=== PATIENT | male | born 1990 | race Caucasian/White ===

== ENCOUNTER 2017-04-12 13:10 | Emergency (ER) | payer OTHER ==
[~2017-04-12] VITALS: Ht 188 cm; Wt 80.0 kg
[~2017-04-12 13:10] MED LIST: CEPH500 PO
[2017-04-12 13:14] VITALS: BP 144/79; PULSE 52; RESP 18; TEMP 98.6; O2SAT 97
--- NOTE | 2017-04-12 13:27 | PD ---
Physical Exam Date Seen by Provider: Apr 12, 2017 Time Seen by Provider: 13:26 Narrative 27 yo male here for crush injury to distal 3rd and 4th digits. Painful 01/10. Only to the tips. Wrapped in triage. Able to move them. No numbness, tingling, weakness. No other injuries reported. Vitals are stable in triage. Awaiting bed placement. Data Data Last Documented VS Vital Signs Date Time Temp Pulse Resp B/P (MAP) Pulse Ox O2 Delivery O2 Flow Rate FiO2 04/12/17 13:14 98.6 52 18 144/79 (100) 97 Room Air Orders Orders Finger ([id number]) (04/12/17 ) Finger ([id number]) (04/12/17 ) MDM Medical Record Reviewed: Yes Supervised Visit with BLANCA: Elton Cullen Apr 12, 2017 13:27
--- NOTE | 2017-04-12 13:54 | PD ---
HPI Chief Complaint: Injury Time Seen by Provider: 13:54 Travel History International Travel<30 days: No Contact w/Intl Traveler<30days: No Traveled to known affect area: No PFSH Past Medical History Asthma: Yes Social History Alcohol Use: No (OCCASIONAL) Tobacco Use: Yes (QUIT 2 MONTHS AGO) Substance Use: No Allergies-Medications (Allergen,Severity, Reaction): Coded Allergies: *MDRO Multi-Drug Resistant Organism (Verified Allergy, Unknown, 04/12/17) MRSA Reported Meds & Prescriptions Reported Meds & Active Scripts Active Keflex (Cephalexin) 500 Mg Cap 500 Mg PO Q6H 7 Days Keflex 500 mg Cap (Cephalexin Monohydrate) 500 Mg Cap 500 Mg PO BID 14 Days Data Data Last Documented VS Vital Signs Date Time Temp Pulse Resp B/P (MAP) Pulse Ox O2 Delivery O2 Flow Rate FiO2 04/12/17 17:18 04/12/17 16:56 61 17 99 Room Air 04/12/17 13:14 98.6 Orders Orders Hand, Complete ([id number]) (04/12/17 ) Cefazolin 2 Gm Premix (Ancef 2 Gm Premix (04/12/17 16:15) Splint Or Brace Apply/Monitor (04/12/17 16:27) Ed Discharge Order (04/12/17 16:30) Ibuprofen (Motrin) (04/12/17 16:45) Finger Splint (04/12/17 ) Finger Splint (04/12/17 ) MDM Medical Decision Making Medical Screen Exam Complete: Yes Emergency Medical Condition: Yes Medical Record Reviewed: Yes Scripts Cephalexin (Keflex) 500 Mg Cap 500 MG PO Q6H for Infection for 7 Days, #28 CAP 0 Refills Prov: Jackie FriedmanP 04/12/17 Kia Greenfield Apr 12, 2017 13:54
--- NOTE | 2017-04-12 14:27 | RADRPT ---
EXAM DATE/TIME: 04/12/2017 14:06 [facility] COMPARISON: No previous studies available for comparison. INDICATIONS : Right hand pain, crushed 3rd and 4th digits between a truck and a zeus MEDICAL HISTORY : None. SURGICAL HISTORY : None. ENCOUNTER: Initial ACUITY: 1 day PAIN SCORE: 8/10 LOCATION: Right hand FINDINGS: There are tuft fractures of the third and fourth digits with associative soft tissue swelling and min imal radiopaque densities projecting at the fingertips. Remaining structures are intact. Joint spaces are maintained. CONCLUSION: 1. Distal third and fourth tuft fractures with small radiopaque densities projecting at the fingertip nae Harris MD on April 12, 2017 at 14:24 Board Certified Radiologist. This report was verified electronically.
--- NOTE | 2017-04-12 14:42 | PD ---
HPI Chief Complaint: Injury Time Seen by Provider: 14:33 Travel History International Travel<30 days: No Contact w/Intl Traveler<30days: No Traveled to known affect area: No History of Present Illness HPI 27 yo male here for crush injury to distal 3rd and 4th digits. Painful 01/10. Only to the tips. 2 lacerations to the third and fourth digit. Full range of motion. No numbness, tingling, weakness. No other injuries reported. Tetanus status up-to-date. PFSH Past Medical History Asthma: Yes Social History Alcohol Use: No (OCCASIONAL) Tobacco Use: Yes (QUIT 2 MONTHS AGO) Substance Use: No Allergies-Medications (Allergen,Severity, Reaction): Coded Allergies: *MDRO Multi-Drug Resistant Organism (Verified Allergy, Unknown, 04/12/17) MRSA Reported Meds & Prescriptions Reported Meds & Active Scripts Active Keflex (Cephalexin) 500 Mg Cap 500 Mg PO Q6H 7 Days Keflex 500 mg Cap (Cephalexin Monohydrate) 500 Mg Cap 500 Mg PO BID 14 Days Review of Systems Except as stated in HPI: all other systems reviewed are Neg Physical Exam Narrative GENERAL: Well-nourished, well-developed patient. SKIN: Focused skin assessment warm/dry. CARDIOVASCULAR: Regular rate and rhythm without murmurs, gallops, or rubs. RESPIRATORY: Breath sounds equal bilaterally. No accessory muscle use. GASTROINTESTINAL: Abdomen soft, non-tender, nondistended. MUSCULOSKELETAL: No cyanosis, or edema. Right hand: Third digit: 2 cm laceration to the dorsal distal aspect near the edge of the nail. Finger is mildly edematous and ecchymotic. Normal sensation. Full range of motion. Fourth digit:1.5 cm laceration to the dorsal distal aspect near the edge of the nail. Finger is mildly edematous and ecchymotic. Normal sensation. Full range of motion. Data Data Last Documented VS Vital Signs Date Time Temp Pulse Resp B/P (MAP) Pulse Ox O2 Delivery O2 Flow Rate FiO2 04/12/17 17:18 04/12/17 16:56 61 17 99 Room Air 04/12/17 13:14 98.6 Orders Orders Hand, Complete ([id number]) (04/12/17 ) Cefazolin 2 Gm Premix (Ancef 2 Gm Premix (04/12/17 16:15) Splint Or Brace Apply/Monitor (04/12/17 16:27) Ed Discharge Order (04/12/17 16:30) Ibuprofen (Motrin) (04/12/17 16:45) Finger Splint (04/12/17 ) Finger Splint (04/12/17 ) MDM Medical Decision Making Medical Screen Exam Complete: Yes Emergency Medical Condition: Yes Differential Diagnosis Finger fracture, finger laceration, contusion, crush injury Narrative Course 27-year-old male who sustained a crush injury to the right third and fourth digit while at work. Patient reports normal sensation and full range of motion. He is noted to have 2 lacerations measuring approximately 2 cm a piece. The extremity is neurovascularly intact. Call placed to hand surgeon. Spoke with Dr. Armas on-call hand surgeon regarding patient's case. He recommends extensive irrigation, primary closure, prophylactic antibiotics, finger splints and follow-up with him in office in 2-3 days. The wounds were extensively irrigated and sutured closed. Finger splints applied by nursing staff. Patient was advised to call Dr. Armas office tomorrow to schedule an appointment in 2 days. Patient was advised of this follow-up appointment with a hand surgeon was extremely important and failure to do so could result in loss of function of the hand, severe infection, and . Patient verbalizes understanding and agrees to plan Procedures Procedure Narrative LACERATION LOCATION: Third digit, fourth digit LENGTH: Third digit 2 cm, fourth digit 1.5 cm NUMBER OF STITCHES/FLAVIO: 9 total REPAIR: The area of the laceration was prepped with Betadine and sterilely draped. Digital block with 1% lidocaine. The wound was copiously irrigated and explored without evidence of foreign body, tendon injury or neurovascular injury. The wound was closed using [3-0 chromic gut]. This was a [single] layer repair. A sterile dressing was applied. The patient was advised to keep the dressing clean and dry. Patient tolerated the procedure well. Finger splint applied by nursing staff. Diagnosis Primary Impression: Finger laceration Qualified Codes: S61.319A - Laceration without foreign body of unspecified finger with damage to nail, initial encounter Additional Impression: Open fracture of tuft of distal phalanx of finger Referrals: Weston Armas MD Additional Instructions: Take antibiotics as prescribed. Do not submerge the lacerations and water. Change the dressing daily. With the splints at all times. Call and make a follow-up appointment with a hand surgeon in 2-3 days. Return to emergency department if he had new or worsening symptoms. Scripts Cephalexin (Keflex) 500 Mg Cap 500 MG PO Q6H for Infection for 7 Days, #28 CAP 0 Refills Prov: Jackie Friedman 04/12/17 Disposition: 01 DISCHARGE HOME Condition: Stable Jackie Friedman Apr 12, 2017 14:42
[2017-04-12] MEDS ORDERED: ceFAZolin 2 GM PREMIX 50 ML IV ONE (16:15)
[2017-04-12] MEDS ORDERED: CEPH-460 PO (16:30)
[2017-04-12] MEDS ORDERED: IBUPROFEN 800 MG TAB PO ONE (16:45)
[2017-04-12 16:56] VITALS: BP 135/86; PULSE 61; RESP 17; O2SAT 99
== END 2017-04-12 17:18 | disposition home or self-care (01) ==
LOC: NEPD 13:10
DX: S61.214A Laceration without foreign body of right ring finger without damage to nail, initial encounter (principal); S61.212A Laceration without foreign body of right middle finger without damage to nail, initial encounter; W23.0XXA Caught, crushed, jammed, or pinched between moving objects, initial encounter; Y99.0 Civilian activity done for income or pay
CPT/HCPCS: 12001; 29130; 73130; 96374; 99284; J0690